=== PATIENT | female | born 1945 | race American Indian/Alaskan Native ===

== ENCOUNTER 2017-08-21 13:24 | Outpatient (CLI) | payer MEDICARE ==
--- NOTE | 2017-08-21 13:52 | XRay Report ---
Right knee 4 views. Findings: There is moderate narrowing of the joint space. No fractures or other acute findings are seen. There is moderate narrowing of the patellofemoral joint. No significant soft tissue abnormalities are seen. Impression: Tricompartmental osteoarthritis.
== END 2017-08-21 13:25 | disposition home or self-care (01) ==
LOC: SPVIMAG 13:24
PROVIDERS: ATTEND Orthopaedic Surgery Sports Medicine
DX: M17.11 Unilateral primary osteoarthritis, right knee (principal)